=== PATIENT | female | born 1945 | race Caucasian/White ===

== ENCOUNTER 2017-05-23 13:16 | Day surgery (SDC) | payer MEDICARE, OTHER ==
[~2017-05-23] VITALS: Ht 152.4 cm; Wt 66.2 kg
[2017-05-23 14:08] VITALS: BP 137/77; PULSE 80; TEMP 97.6
[2017-05-23] MEDS ORDERED: NOVOLIN 70/30 710 ML SQ ×2 (14:20→14:21)
[2017-05-23] MEDS ORDERED: GLUCOPHAGE1000 MG PO (14:22)
[2017-05-23] MEDS ORDERED: VERELAN180 MG PO (14:23)
[2017-05-23] MEDS ORDERED: LIPITOR 10MG10 MG PO (14:24)
[2017-05-23] MEDS ORDERED: LOTENSIN 1010 MG/TAB PO (14:25)
[2017-05-23] MEDS ORDERED: NATURAL MAGNES200 MG PO (14:26)
[2017-05-23] MEDS ORDERED: HCTZ12.5TAB PO (14:29)
[2017-05-23] MEDS ORDERED: LYRICA 50MG CAP50 MG PO (14:29)
[2017-05-23] MEDS ORDERED: ASPIRIN 81M81 MG/TA2 PO (14:30)
[2017-05-23] MEDS ORDERED: CALCIUM CARBON650 M2 PO (14:31)
[2017-05-23] MEDS ORDERED: MULTIPLE VITAMI1 CAP PO (14:32)
[2017-05-23 16:13] VITALS: BP 126/62; PULSE 87; TEMP 98.3
[2017-05-23 16:30] VITALS: BP 121/73; PULSE 70
[2017-05-23 16:45] VITALS: BP 116/73; PULSE 75
[2017-05-23 17:27] VITALS: BP 117/61; PULSE 75
== END 2017-05-23 16:58 | disposition home or self-care (01) ==
LOC: SDCO 13:16
DX: K20.9 Esophagitis, unspecified (principal); Z98.84 Bariatric surgery status; Z12.11 Encounter for screening for malignant neoplasm of colon; Z68.28 Body mass index [BMI] 28.0-28.9, adult; Z88.8 Allergy status to other drugs, medicaments and biological substances; E11.9 Type 2 diabetes mellitus without complications; Z79.4 Long term (current) use of insulin
CPT/HCPCS: OP; J2250; J3010; J7042

== ENCOUNTER → 2017-12-18 | Outpatient (CLI) | payer MEDICARE, OTHER ==
[~2017-12-18] MED LIST: ASPIRIN 81M81 MG/TA2 PO; CALCIUM CARBON650 M2 PO; GLUCOPHAGE1000 MG PO; HCTZ12.5TAB PO; LIPITOR 10MG10 MG PO; LOTENSIN 1010 MG/TAB PO; LYRICA 50MG CAP50 MG PO; MULTIPLE VITAMI1 CAP PO; NATURAL MAGNES200 MG PO; NOVOLIN 70/30 710 ML SQ; VERELAN180 MG PO
== END ==
LOC: COL.RAD 08:00
DX: K21.9 Gastro-esophageal reflux disease without esophagitis (principal)

== ENCOUNTER → 2018-02-12 | Outpatient (CLI) | payer MEDICARE, OTHER | LOC: MC.RAD 08:57 | DX: Z12.31 Encounter for screening mammogram for malignant neoplasm of breast (principal) ==

== ENCOUNTER → 2018-03-05 | Outpatient (CLI) | payer MEDICARE, OTHER ==
[2018-03-05 15:12] LABS: HIV 1/2 Antibodies Non-Reactive; HIV-1p24 Antigen Non-Reactive
== END ==
LOC: COL.LAB 14:16
PROVIDERS: Orthopaedic Surgery
DX: Z01.812 Encounter for preprocedural laboratory examination (principal); M17.11 Unilateral primary osteoarthritis, right knee

== ENCOUNTER → 2019-02-10 | Outpatient (CLI) | payer MEDICARE, OTHER | LOC: COL.RAD 08:34 | DX: Z86.010 Personal history of colon polyps (principal) ==

== ENCOUNTER → 2019-02-14 | Outpatient (CLI) | payer MEDICARE, OTHER | LOC: MC.RAD 10:23 | DX: Z12.31 Encounter for screening mammogram for malignant neoplasm of breast (principal) ==

== ENCOUNTER → 2020-02-16 | Outpatient (CLI) | payer MEDICARE, OTHER | LOC: MC.RAD 10:27 | DX: Z12.31 Encounter for screening mammogram for malignant neoplasm of breast (principal) ==

== ENCOUNTER 2023-12-17 07:56 | Emergency (ER) | payer MEDICARE, OTHER ==
[2023-12-17 07:59] VITALS: TEMP 99.5
[2023-12-17] MEDS ORDERED: NS 500 ML IV ONE ×2 (08:30→10:00)
[2023-12-17 08:35] LABS: BASO % 0.2 % (0.0-2.0); GRAN # 8.3 K/mm3 (1.4-6.5); GRAN % 86.1 % (42.2-75.2); HEMOGLOBIN 11.3 g/dl (12.5-16.0); LYMPH # 0.5 K/mm3 (1.2-3.4); LYMPH % 5.3 % (20.0-51.0); MEAN CELL VOLUME 93 fl (80.0-100.0); MEAN CORPUSCULAR HEMOGLOBIN 30 pg (27-31); MEAN CORPUSCULAR HGB CONC 32 g/dl (33.0-37.0); MEAN PLATELET VOLUME 10.7 fl (7.4-10.4); MONO # 0.8 K/mm3 (0.1-0.6); MONO % 8.1 % (1.7-9.3); PLATELET COUNT 228 K/mm3 (130-400); RED BLOOD COUNT 3.81 M/mm3 (4.10-5.30); REDCELL DISTRIBUTION WIDTH-CV 13.7 % (11.5-14.5)
[2023-12-17 08:37] LABS: COLLECTION METHOD CATHETER
[2023-12-17 08:42] LABS: HEMATOCRIT 35.3 % (37.0-47.0)
[2023-12-17 08:43] LABS: PH 5.5 (5.0-8.5); URINE APPEARANCE CLEAR (CLEAR/HAZY); URINE BLOOD NEGATIVE (NEGATIVE); URINE COLOR YELLOW (YELLOW); URINE GLUCOSE 3+ (NEGATIVE); URINE KETONE 1+ (NEGATIVE); URINE NITRATE NEGATIVE (NEGATIVE); URINE PROTEIN(semi-quant) NEGATIVE (NEGATIVE); URINE UROBILINOGEN 0.2 E.U/dL (0.2-1.0)
[2023-12-17 08:48] LABS: ALBUMIN 3.4 g/dL (3.4-4.8); C-REACTIVE PROTEIN 0.54 mg/dL (0.00-0.50); CALCIUM 9.9 mg/dL (8.4-10.2); CREATININE, serum 1.83 mg/dL (0.57-1.11); POTASSIUM 4.3 mEq/L (3.5-4.5); TOTAL PROTEIN 6.4 g/dl (6.2-8.1)
[2023-12-17 09:11] LABS: BILIRUBIN,TOTAL 0.8 mg/dL (0.2-1.2)
[2023-12-17 10:44] VITALS: BP 115/51; PULSE 70
== END 2023-12-17 11:00 | disposition home or self-care (01) ==
LOC: COL.ER 07:56
PROVIDERS: Emergency Medicine
DX: R55 Syncope and collapse (principal); E86.0 Dehydration; E11.9 Type 2 diabetes mellitus without complications; N28.9 Disorder of kidney and ureter, unspecified; Z79.4 Long term (current) use of insulin
CPT/HCPCS: J7040